=== PATIENT | female | born 1990 | race Caucasian/White ===

== ENCOUNTER 2021-03-07 10:09 | Inpatient (IN) ==
[2021-03-07] MEDS ORDERED: Ondansetron 4 MG/2 ML VIAL IVP PRN (11:07)
[2021-03-07] MEDS ORDERED: *HR* Nalbuphine 10 MG/ML AMPUL IV PRN (11:07)
[2021-03-07] MEDS ORDERED: Metoclopramide 10 MG/2 ML VIAL IVP PRN (11:07)
[2021-03-07] MEDS ORDERED: Famotidine 20 MG/2 ML VIAL IVP PRN (11:07)
[2021-03-07] MEDS ORDERED: Naloxone 0.4 MG/ML INJ IVP PRN (11:07)
[2021-03-07] MEDS ORDERED: Ringers Solution, Lactated 1,000 ML IVC SCH (11:15)
[2021-03-07 12:20] LABS: Basophils % 0.3 %; Eosinophils # 0.1 K/mcL (0.0-0.6); Eosinophils % 0.5 %; Hemoglobin 13.3 g/dL (11.5-15.4); Immature Granulocytes % 0.5 % (0-4); Lymphocytes # 1.9 K/mcL (0.6-4.6); Lymphocytes % 13.7 %; Mean Corpuscular Hemoglobin 32.8 pg (28.0-33.3); Mean Corpuscular Volume 93.8 fL (83.0-100.0); Mean Platelet Volume 10.5 fL (9.4-12.4); Monocytes # 0.8 K/mcL (0.0-1.3); Monocytes % 5.8 %; Platelet Count 243 K/mcL (140-400); Red Blood Count 4.05 M/mcL (3.82-4.97); Red Cell Distribution Width 12.5 % (11.5-14.5); Segmented Neutrophils % 79.2 %; White Blood Count 13.9 K/mcL (4.3-11.1)
[2021-03-07 12:25] LABS: Amphetamine Screen,Urine Negative ng/mL (Cutoff=1000); Barbiturate Screen,Urine Negative ng/mL (Cutoff=200); Benzodiazepines Screen,Urine Negative ng/mL (Cutoff=200); Cannabinoid Screen,Urine Negative ng/mL (Cutoff = 50); Cocaine Screen,Urine Negative ng/mL (Cutoff= 300); Opiate Screen,Urine Negative ng/mL (Cutoff=300); Phencyclidine Screen,Urine Negative ng/mL (Cutoff=25)
[2021-03-07] MEDS ORDERED: miSOPROStoL 25 MCG TABLET PO PRN (12:46)
[2021-03-07 15:06] LABS: Influenza A PCR Negative (Negative); Influenza B PCR Negative (Negative); Resp. Syncytial Virus PCR Negative (Negative)
[2021-03-07 15:07] LABS: SARS-CoV-2 by PCR (In House) Negative (Negative)
[2021-03-07] MEDS ORDERED: EPHEDrine 50 MG/ML VIAL IVP PRN (15:24)
[2021-03-07] MEDS ORDERED: Epidural Premix (fent/bupiv) 110 ML EP SCH (15:30)
[2021-03-07] MEDS ORDERED: Oxytocin 20 units/ LR 1000 mL 20 UNIT/1,000 ML BAG IVC SCH (19:45)
[2021-03-07] MEDS ORDERED: *HR* FentaNYL (PF) 100 MCG/2 ML VIAL ONE (20:59)
[2021-03-07] MEDS ORDERED: Ropivacaine/PF 0.2% 20 ML VIAL ONE (21:00)
[2021-03-07] MEDS ORDERED: Lidocaine 1% 20 ML MDV ONE (23:55)
[2021-03-08] MEDS ORDERED: Ondansetron ODT 4 MG TAB.RAPDIS SL PRN (02:46)
[2021-03-08] MEDS ORDERED: Measles/Mumps/Rubella Vacc 0.5 ML VIAL SQ PRN (02:46)
[2021-03-08] MEDS ORDERED: Lanolin 7 G OINT...G. TP PRN (02:46)
[2021-03-08] MEDS ORDERED: Rho Immune Globulin 1,500 UNIT SYRINGE IM PRN (02:46)
[2021-03-08] MEDS ORDERED: Benzocaine/Menthol 56 GM AEROSOL SPRAY TP PRN (02:46)
[2021-03-08] MEDS ORDERED: Oxytocin 20 units/ LR 1000 mL 20 UNIT/1,000 ML BAG IVC SCH (02:46)
[2021-03-08] MEDS: Ibuprofen 600 MG TABLET PO SCH ×3 (03:05→20:34)
[2021-03-08 04:51] VITALS: O2SAT 97
[2021-03-08 05:03] LABS: Basophils % 0.1 %; Hematocrit 34.9 % (35.3-44.9); Hemoglobin 12.2 g/dL (11.5-15.4); Immature Granulocytes % 0.5 % (0-4); Lymphocytes # 1.2 K/mcL (0.6-4.6); Lymphocytes % 5.4 %; Mean Corpuscular Volume 94.3 fL (83.0-100.0); Mean Platelet Volume 10.7 fL (9.4-12.4); Monocytes # 1.2 K/mcL (0.0-1.3); Monocytes % 5.2 %; Neutrophils # 19.9 K/mcL (1.6-8.9); Platelet Count 207 K/mcL (140-400); Red Cell Distribution Width 12.3 % (11.5-14.5); Segmented Neutrophils % 88.8 %
[2021-03-08 05:06] LABS: White Blood Count 22.4 K/mcL (4.3-11.1)
[2021-03-08] MEDS: Acetaminophen 325 MG TABLET PO SCH ×2 (06:51→20:35)
[2021-03-08] MEDS: Prenatal Vit/FA 1 EACH TABLET PO SCH (09:06)
[2021-03-09] MEDS: Acetaminophen 325 MG TABLET PO SCH ×2 (02:42→09:30)
[2021-03-09] MEDS: Ibuprofen 600 MG TABLET PO SCH ×2 (02:42→09:30)
[2021-03-09 06:40] LABS: Basophils # 0.1 K/mcL (0.0-0.2); Basophils % 0.4 %; Eosinophils # 0.1 K/mcL (0.0-0.6); Eosinophils % 1.1 %; Hematocrit 34.4 % (35.3-44.9); Hemoglobin 11.8 g/dL (11.5-15.4); Immature Granulocytes % 0.5 % (0-4); Lymphocytes % 23.3 %; Mean Corpuscular HGB Conc 34.3 g/dL (31.6-35.5); Mean Corpuscular Hemoglobin 32.7 pg (28.0-33.3); Mean Corpuscular Volume 95.3 fL (83.0-100.0); Mean Platelet Volume 9.9 fL (9.4-12.4); Monocytes # 0.9 K/mcL (0.0-1.3); Monocytes % 7.1 %; Neutrophils # 8.7 K/mcL (1.6-8.9); Platelet Count 209 K/mcL (140-400); Red Blood Count 3.61 M/mcL (3.82-4.97); Red Cell Distribution Width 12.7 % (11.5-14.5); Segmented Neutrophils % 67.6 %; White Blood Count 12.8 K/mcL (4.3-11.1)
[2021-03-09 07:33] VITALS: BP 119/85; PULSE 15; TEMP 97.9
[2021-03-09] MEDS: Prenatal Vit/FA 1 EACH TABLET PO SCH (09:30)
== END 2021-03-09 10:30 | disposition home or self-care (01) | DRG 807 ==
LOC: 1NENULAB 10:09 → 1NENUOBS 03-08 02:46
PROVIDERS: ADMIT Obstetrics & Gynecology; ATTEND Obstetrics & Gynecology